=== PATIENT | female | born 1960 | race Caucasian/White ===

== ENCOUNTER 2023-03-22 12:27 | Emergency (ER) | payer BC, SELFPAY ==
[2023-03-22 12:27] VITALS: BP 122/74; PULSE 85; RESP 18; TEMP 36.7; O2SAT 98; BMI 24.1
--- NOTE | 2023-03-22 12:41 | EXP.UTC ---
Discharge Plan Disposition Patient Disposition: Home, Self-Care Condition: Good Prescriptions Prescriptions: New guaifenesin [Mucinex] 600 mg tablet extended release 12hr 600 - 1,200 mg PO BID PRN (Reason: cough/congestion) Qty: 20 0RF prednisone 10 mg tablet 10 mg PO BID 5 Days Qty: 10 0RF azithromycin [Zithromax Z-Noé] 250 mg tablet See Rx Instructions .ROUTE .COMPLEX 5 Days Qty: 6 0RF Rx Instructions: For 250 mg dose pack: take 500 mg today (day 1), then 250 mg for 4 days (days 2-5) No Action albuterol sulfate [Ventolin HFA] 90 mcg/actuation HFA aerosol inhaler 1 puff INHALATION Q6H Qty: 6.7 0RF Rx Instructions: administer with spacer azithromycin [Zithromax Z-Noé] 250 mg tablet 250 mg PO QDAY 5 Days Qty: 6 0RF omeprazole 20 mg capsule,delayed release(DR/EC) 20 mg PO DAILY Qty: 90 2RF bupropion HCl 300 mg tablet extended release 24 hr See Rx Instructions .ROUTE .COMPLEX Qty: 90 2RF Dose Instruction: TAKE 1 TABLET DAILY Rx Instructions: TAKE 1 TABLET DAILY Referrals Follow up/Referrals: Provider,Referral, MD [Primary Care Provider] - See instructions Activity Restrictions/Add. Instructions Additional Instructions/Restrictions: Start antibiotic today. Be sure to complete entire prescription even if feeling better Monitor temp. Tylenol every 4 hours as needed and / or ibuprofen every 6 hours as needed ( As long as your primary care physician has told you that it ok to take both. For fever/aches/pains ER if no less than 101 despite Tylenol or Motrin Humidifier/vaporizer or hot steamy shower Inhaler as prescribed like we discussed. Should help open airways and improve cough, wheezing, and shortness of breath Mucinex during the day for your cough and cough suppressant only at night. Be sure to drink lots of water. *Start steroid tomorrow 03/23/23. Helps with inflammation therefore, cough and wheezing. Follow directions on the package. Reviewed side effects. Patient reports taking them before. Follow up IMMEDIATELY for new or worsening of symptoms OR no noticeable improvement over the next 48-72 hours. 911 immediately for any life threatening symptoms such as chest pain or difficulty breathing Clinical Impressions Clinical Impression: Bronchitis Instructions Patient Instructions: Acute Bronchitis, DI for Chronic Obstructive Pulmonary Disease, COPD: When to Call for Help Discharge ED Provider: Darlene Espinosa [facility] General Stated complaint: Chest congestion, drainage, ears clogged Mode of Arrival: Ambulatory Source of Information: Patient Limitations: No Limitations Time Seen by Provider: 03/22/23 12:42 Description of Symptoms (Recalled from Triage Doc. by RN): Patient complaint of congestion, stuffiness in her head, bilateral ear pain, cough and sore throat for awhile. States that it just isn't getting better and she couldn't get in to see her doctor. HEENT Symptoms (Recalled from RN notes): Yes Resp Symptoms (Recalled from RN notes): No Skin Symptoms (Recalled from RN notes): No MS Symptoms (Recalled from RN notes): No Functional Status (Recalled from RN notes): wnl History of Present Illness Provider Complaint: Patient states that she has been having sinus congestion, scratchy throat, bilateral ear pain, and cough on and off for several weeks that has got worse States that she feels like it is trying to move into her chest and coughing up mucous at times and she has a hx of COPD and wanted to get ahead of it before it got really bad Related Data Previous Rx's Medication Instructions Recorded albuterol sulfate 90 mcg/actuation 1 puff inhalation Q6H #6.7 grams 06/01/18 aerosol inhaler (Ventolin HFA) azithromycin 250 mg tablet 250 mg PO QDAY 2 tabs day 1, then 10/11/19 (Zithromax Z-Noé) 1 tab days 2-5 5 days #6 tabs omeprazole 20 mg capsule,delayed 20 mg PO DAILY #90 caps 12/04/20 release bupropio
[2023-03-22 13:05] VITALS: BP 122/74; PULSE 85; RESP 18; TEMP 36.7; O2SAT 98
== END 2023-03-22 13:10 | disposition home or self-care (01) ==
PROVIDERS: Emergency Provider Nurse Practitioner
DX: J20.9 Acute bronchitis, unspecified (principal); H92.03 Otalgia, bilateral; J44.9 Chronic obstructive pulmonary disease, unspecified; Z87.891 Personal history of nicotine dependence
CPT/HCPCS: 96372; 99204; 99212; G0463; J0696